=== PATIENT | female | born 1940 | race Caucasian/White ===

== ENCOUNTER 2017-10-25 20:07 | Emergency (ER) | payer OTHER, BC ==
[~2017-10-25] VITALS: Ht 149.9 cm; Wt 49.6 kg
[2017-10-25 20:08] VITALS: BP 123/74
[2017-10-25] MEDS ORDERED: UNICOMPLEX M TA1 TA1 PO (21:31)
== END 2017-10-25 21:23 | disposition home or self-care (01) ==
LOC: ER 20:07
DX: T23.201A Burn of second degree of right hand, unspecified site, initial encounter (principal); T31.0 Burns involving less than 10% of body surface; S61.213A Laceration without foreign body of left middle finger without damage to nail, initial encounter; Z88.5 Allergy status to narcotic agent; Z88.1 Allergy status to other antibiotic agents; X02.8XXA Other exposure to controlled fire in building or structure, initial encounter; Y93.89 Activity, other specified; Y92.89 Other specified places as the place of occurrence of the external cause; Y99.8 Other external cause status

== ENCOUNTER 2018-10-12 21:11 | Emergency (ER) | payer OTHER, BC ==
[~2018-10-12] VITALS: Ht 149.9 cm; Wt 50.8 kg
[~2018-10-12 21:11] MED LIST: UNICOMPLEX M TA1 TA1 PO
[2018-10-12] MEDS ORDERED: LIPITOR10 MG PO (21:25)
[2018-10-12] MEDS ORDERED: IBUPROFEN 600600 M1 PO (21:25)
[2018-10-12] MEDS ORDERED: PREDNISONE 20 M20 MG PO (22:41)
[2018-10-12 22:54] VITALS: BP 121/69
== END 2018-10-12 23:00 | disposition home or self-care (01) ==
LOC: ER 21:11
DX: T78.1XXA Other adverse food reactions, not elsewhere classified, initial encounter (principal); H02.849 Edema of unspecified eye, unspecified eyelid; X58.XXXA Exposure to other specified factors, initial encounter; M19.90 Unspecified osteoarthritis, unspecified site; E78.00 Pure hypercholesterolemia, unspecified; Z90.11 Acquired absence of right breast and nipple; Z88.1 Allergy status to other antibiotic agents; Z88.5 Allergy status to narcotic agent

== ENCOUNTER 2019-09-07 13:41 | Emergency (ER) | payer OTHER, BC ==
[~2019-09-07] VITALS: Ht 149.9 cm; Wt 53.5 kg
[~2019-09-07 13:41] MED LIST changes: +IBUPROFEN 600600 M1 PO; +LIPITOR10 MG PO; +PREDNISONE 20 M20 MG PO
[2019-09-07] MEDS ORDERED: PREDNISONE 20 M20 MG PO (14:15)
[2019-09-07] MEDS ORDERED: FAMOTIDINE 20 M20 MG PO (14:15)
[2019-09-07 14:46] VITALS: BP 161/75
== END 2019-09-07 14:50 | disposition home or self-care (01) ==
LOC: ER 13:41
DX: T78.1XXA Other adverse food reactions, not elsewhere classified, initial encounter (principal); E78.00 Pure hypercholesterolemia, unspecified; M19.90 Unspecified osteoarthritis, unspecified site; Z90.11 Acquired absence of right breast and nipple; Z88.1 Allergy status to other antibiotic agents; Z88.6 Allergy status to analgesic agent; X58.XXXA Exposure to other specified factors, initial encounter